=== PATIENT | male | born 1975 | race Caucasian/White ===

== ENCOUNTER 2021-08-19 15:15 | Outpatient (REF) | payer MEDICARE, MEDICAID, SELFPAY ==
[2021-08-19 15:53] LABS: MANUAL DIFF FLAG NO
[2021-08-19 15:54] LABS: Basophils Percent Auto 0.2 % (0-2); Eosinophils Percent Auto 0.1 % (0-4); Hematocrit 47.4 % (42.0-52.0); Hemoglobin 16.3 g/dl (14.0-18.0); Imm Gran Abs Auto 0.05 X10*3/uL (0.00-0.03); Imm Gran Pct Auto 0.3 % (0.0-0.4); Lymphocytes Absolute Auto 1.2 X10*3/uL (1.2-4.9); Lymphocytes Percent Auto 8.5 % (20-40); Mean Corpuscular HGB Conc 34.4 g/dl (31.0-36.0); Mean Corpuscular Volume 84.2 fL (80.0-98.0); Monocytes Absolute Auto 0.8 X10*3/uL (0.1-1.2); Monocytes Percent Auto 5.5 % (2-11); Neutrophils Absolute Auto 12.3 x10*3/uL (2.0-8.3); Neutrophils Percent Auto 85.4 % (45-73); Platelet Count 278 X10*3/uL (160-400); Red Blood Count 5.63 X10*6/uL (4.60-5.80); Red Cell Distribution Width 12.3 % (11.0-16.0); White Blood Count 14.5 X10*3/uL (4.8-10.8)
[2021-08-19 16:07] LABS: Estimated Average Glucose 220 mg/dL; Hemoglobin A1c % 9.3 %
[2021-08-19 16:15] LABS: Alanine Aminotransferase 17 U/L (0-40); Albumin Level 4.6 g/dL (3.5-5.0); Alkaline Phosphatase 84 U/L (39-117); Anion Gap 13 (12-20); Aspartate Amino Transferase 22 U/L (5-37); Bilirubin Total 0.7 mg/dL (0.0-1.0); Blood Urea Nitrogen 18 mg/dL (9-16); Calcium 10.5 mg/dL (8.4-10.2); Carbon Dioxide 29 mmol/L (22-29); Chloride 103 mmol/L (96-108); Cholesterol 181 mg/dL; Estimated Glomerular Filt Rate 59; Glucose Random 160 mg/dL (60-115); Potassium 4.6 mmol/L (3.3-5.1); Sodium 140 mmol/L (135-145); Total Protein 8.1 g/dL (6.5-8.0)
== END 2021-08-19 15:16 | disposition home or self-care (01) ==
LOC: HO.LAB 15:15
PROVIDERS: PCP Internal Medicine; Visit Provider Internal Medicine
DX: E11.9 Type 2 diabetes mellitus without complications (principal); I10 Essential (primary) hypertension; H54.8 Legal blindness, as defined in USA; Z79.4 Long term (current) use of insulin
CPT/HCPCS: 36415; 80053; 82465; 83036; 85025

== ENCOUNTER 2023-12-17 10:53 | Outpatient (REF) | payer MEDICARE, MEDICAID, SELFPAY ==
[2023-12-17 11:21] LABS: MANUAL DIFF FLAG NO
[2023-12-17 11:37] LABS: Basophils Percent Auto 0.4 % (0-2); Eosinophils Absolute Auto 0.1 X10*3/uL (0.0-0.4); Eosinophils Percent Auto 0.9 % (0-4); Hematocrit 43.1 % (42.0-52.0); Hemoglobin 15.2 g/dl (14.0-18.0); Imm Gran Abs Auto 0.02 X10*3/uL (0.00-0.03); Imm Gran Pct Auto 0.3 % (0.0-0.4); Lymphocytes Absolute Auto 1.5 X10*3/uL (1.2-4.9); Lymphocytes Percent Auto 20.2 % (20-40); Mean Corpuscular HGB Conc 35.3 g/dl (31.0-36.0); Mean Corpuscular Hemoglobin 29.2 pg (27.0-33.0); Mean Corpuscular Volume 82.7 fL (80.0-98.0); Mean Platelet Volume 9.1 fL (9.4-12.4); Monocytes Absolute Auto 0.6 X10*3/uL (0.1-1.2); Monocytes Percent Auto 8.3 % (2-11); Neutrophils Absolute Auto 5.3 x10*3/uL (2.0-8.3); Neutrophils Percent Auto 69.9 % (45-73); Platelet Count 227 X10*3/uL (160-400); Red Blood Count 5.21 X10*6/uL (4.60-5.80); Red Cell Distribution Width 11.9 % (11.0-16.0); White Blood Count 7.6 X10*3/uL (4.8-10.8)
[2023-12-17 12:47] LABS: Estimated Average Glucose 137 mg/dL; Hemoglobin A1c % 6.4 % (<6.0)
[2023-12-17 13:07] LABS: Alanine Aminotransferase 11 U/L (0-40); Alkaline Phosphatase 85 U/L (39-117); Anion Gap 8 (12-20); Aspartate Amino Transferase 16 U/L (5-37); Bilirubin Total 0.4 mg/dL (0.0-1.0); Blood Urea Nitrogen 15 mg/dL (9-16); Calcium 9.4 mg/dL (8.4-10.2); Carbon Dioxide 31 mmol/L (22-29); Chloride 105 mmol/L (96-108); Cholesterol 154 mg/dL (<200); Estimated Glomerular Filt Rate > 60; Glucose Fasting 151 mg/dL (60-99); HDL Cholesterol 35 mg/dL (>40); LDL Cholesterol Calculated 102 mg/dL (<100); Potassium 4.3 mmol/L (3.3-5.1); Sodium 140 mmol/L (135-145); Total Protein 7.3 g/dL (6.5-8.0); Triglycerides 85 mg/dL (<150)
[2023-12-17 13:12] LABS: Thyroid Stimulating Hormone 3.11 uIU/mL (0.32-4.0)
== END 2023-12-17 10:54 | disposition home or self-care (01) ==
LOC: HO.LAB 10:53
PROVIDERS: PCP Internal Medicine; Visit Provider Internal Medicine
DX: I10 Essential (primary) hypertension (principal); E11.40 Type 2 diabetes mellitus with diabetic neuropathy, unspecified; E11.51 Type 2 diabetes mellitus with diabetic peripheral angiopathy without gangrene; R63.5 Abnormal weight gain
CPT/HCPCS: 36415; 80053; 80061; 83036; 84443; 85025

== ENCOUNTER 2024-03-31 10:24 | Outpatient (REF) | payer MEDICARE, MEDICAID, SELFPAY ==
[2024-03-31 10:52] LABS: MANUAL DIFF FLAG NO
[2024-03-31 11:18] LABS: Basophils Absolute Auto 0.1 X10*3/uL (0.0-0.2); Basophils Percent Auto 0.7 % (0-2); Eosinophils Absolute Auto 0.2 X10*3/uL (0.0-0.4); Eosinophils Percent Auto 2.1 % (0-4); Hematocrit 42.6 % (42.0-52.0); Hemoglobin 14.9 g/dl (14.0-18.0); Imm Gran Abs Auto 0.02 X10*3/uL (0.00-0.03); Imm Gran Pct Auto 0.3 % (0.0-0.4); Lymphocytes Absolute Auto 1.7 X10*3/uL (1.2-4.9); Lymphocytes Percent Auto 23.5 % (20-40); Mean Corpuscular Hemoglobin 29.6 pg (27.0-33.0); Mean Corpuscular Volume 84.5 fL (80.0-98.0); Mean Platelet Volume 8.7 fL (9.4-12.4); Monocytes Absolute Auto 0.6 X10*3/uL (0.1-1.2); Monocytes Percent Auto 8.1 % (2-11); Neutrophils Absolute Auto 4.8 x10*3/uL (2.0-8.3); Neutrophils Percent Auto 65.3 % (45-73); Platelet Count 235 X10*3/uL (160-400); Red Blood Count 5.04 X10*6/uL (4.60-5.80); Red Cell Distribution Width 12.5 % (11.0-16.0); White Blood Count 7.3 X10*3/uL (4.8-10.8)
[2024-03-31 15:19] LABS: Estimated Average Glucose 143 mg/dL; Hemoglobin A1c % 6.6 % (<6.0)
[2024-03-31 21:11] LABS: Alanine Aminotransferase 11 U/L (0-40); Albumin Level 4.1 g/dL (3.5-5.0); Alkaline Phosphatase 80 U/L (39-117); Anion Gap 14 (12-20); Aspartate Amino Transferase 16 U/L (5-37); Bilirubin Total 0.5 mg/dL (0.0-1.0); Blood Urea Nitrogen 15 mg/dL (9-16); Calcium 9.7 mg/dL (8.4-10.2); Carbon Dioxide 27 mmol/L (22-29); Chloride 105 mmol/L (96-108); Estimated Glomerular Filt Rate > 60; Glucose Random 82 mg/dL (60-115); Potassium 4.7 mmol/L (3.3-5.1); Sodium 141 mmol/L (135-145); Total Protein 7.5 g/dL (6.5-8.0)
[2024-03-31 21:13] LABS: Thyroid Stimulating Hormone 4.59 uIU/mL (0.32-4.0)
== END 2024-03-31 10:25 | disposition home or self-care (01) ==
LOC: HO.LAB 10:24
PROVIDERS: PCP Internal Medicine; Visit Provider Internal Medicine
DX: E11.9 Type 2 diabetes mellitus without complications (principal); I10 Essential (primary) hypertension
CPT/HCPCS: 36415; 80053; 83036; 84443; 85025

== ENCOUNTER 2024-04-08 07:11 | Emergency (ER) | payer MEDICARE, MEDICAID, SELFPAY ==
[2024-04-08 07:17] VITALS: BP 141/73; BP 166/86; PULSE 110; PULSE 95; RESP 18; TEMP 36.4; O2SAT 95; BMI 35.0
[2024-04-08 07:21] VITALS: BP 166/86; PULSE 95; RESP 18; TEMP 36.4; O2SAT 95
--- NOTE | 2024-04-08 07:21 | ED_ITS ---
HPI - General Adult General Chief complaint: Altered Mental Status Stated complaint: BS 48 glucagon given Time Seen by Provider: 04/08/24 07:17 Source: patient, EMS and old records reviewed Mode of arrival: EMS Limitations: no limitations History of Present Illness ED Provider: JASMYNE CAMPUZANO narrative: 48 yo male with PMH of longstanding DM states he uses glucometer had regular range of BS yesterday ate pasta for dinner then took his lantus 54 units before bed. found him unresponsive in bed. EMS gave him glucagon BS was 48 upon ED arrival he was awake and alert. Denies any recent illness feels fine now states he wants to go home. Denies any event that could have caused this such as illness or overdose. He is eager to leave. MD complaint: hypoglycemia Onset (ago): unknown Radiation: non-radiation Severity: severe Relieving factors: none Exacerbating factors: other (glucagon) Associated symptoms: confusion Treatments prior to arrival: other (glucagon) Related Data Previous Rx's ?Medication ?Instructions ?Recorded glucagon HCl 1 mg solution for 1 mg subcut Q20M PRN hypoglycemia 04/08/24 injection (Glucagon (HCl) #1 ea Emergency Kit) Allergies Allergy/AdvReac Type Severity Reaction Status Date / Time Penicillins Allergy Hives Verified 04/08/24 07:21 Review of Systems 2 Review of Systems: Constitutional : No Fever, No Chills, No Fatigue ENT/Mouth : No sore throat, No Rhinorrhea Eyes: No Eye Pain, No Swelling, No Redness Cardiovascular : No Chest Pain, No SOB, No Dyspnea on Exertion Respiratory : No Cough, No Sputum Gastrointestinal : No Nausea, No Vomiting, No Diarrhea, No abdominal Pain Genitourinary : No Dysuria, No Urinary Frequency, No Hematuria, Musculoskeletal : No joint pain, No Myalgias, No Joint Swelling Skin : No Skin Lesions, No rash Neuro : No Weakness, No Numbness, No Dizziness, no Headache, pos confusion All other systems reviewed and are negative [facility] Past Medical History Medical History Diabetes Social History Social History (Updated 04/08/24 @ 07:24 by Rajwinder Loya DO) Patient Tobacco Use Status: Tobacco use Unknown Smoked in Last 30 Days: No Use of substances other than those prescribed or required for medical reasons: No Advance Directives: No Do you have a plan to hurt others: No Plan Physical Exam ED Vital Signs: Vital Signs - 24 hr 04/08/24 07:17 04/08/24 07:21 04/08/24 08:21 Temperature 97.5 F 97.5 F Pulse Rate 95 95 95 Respiratory Rate 18 18 16 Blood Pressure 166/86 H 166/86 H 141/86 H Pulse Oximetry 95 95 95 Oxygen Delivery Method Room Air Room Air Room Air BMI result Body Mass Index 35.0 Appearance: Alert. Oriented X3. No acute distress. Eyes: L pupils equal, round and reactive to light. R old opacified ENT: Pharynx normal. Neck: Normal inspection. Neck supple. CVS: Normal heart rate and rhythm. Pulses normal. Respiratory: No respiratory distress. Breath sounds normal. Abdomen: Soft and nontender. Skin: Skin warm and dry. Normal skin color. Normal skin turgor. Extremities: No lower extremity edema. No calf ttp Neuro: Oriented X 3. No motor deficit. No sensory deficit. Course Course Course Narrative: repeat blood sugar stable - can be DC Medical Decision Making Medical Decision Making [facility] Narrative: 48 yo male with PMH of longstanding IDDM here with c/o hypoglycemia and unresponsiveness at home without concern for insulin misuse or infection. At this time will obtain basic labs, monitor and recheck sugars. He does have hx of low blood sugars but not to this degree. He does not want to stay but agrees to some monitoring and blood work. Differential Diagnosis Differential Diagnoses: The differential diagnosis associated with the presentation includes hypoglycemia, kidney issue, denies infectious complaints Admission/Observation Consideration of admission/observation: Escalation of care including admission/observation considered monitor for 2 hours to make sure blood sugar is stable Lab Data [facility] Lab Attestation statement: I reviewed the patient's lab results. 04/08/24 07:33 04/08/24 07:33 Labs: Lab Results 04/08/24 04/08/24 Range/Units 07:15 07:33 WBC 5.8 (4.8-10.8) X10*3/uL RBC 4.95 (4.60-5.80) X10*6/uL Hgb 14.6 (14.0-18.0) g/dl Hct 40.8 L (42.0-52.0) % MCV 82.4 (80.0-98.0) fL MCH 29.5 (27.0-33.0) pg MCHC 35.8 (31.0-36.0) g/dl RDW 12.1 (11.0-16.0) % Plt Count 198 (160-400) X10*3/uL MPV 8.6 L (9.4-12.4) fL Immature Gran % (Auto) 0.2 (0.0-0.4) % Neut % (Auto) 70.0 (45-73) % Lymph % (Auto) 19.8 L (20-40) % [place] % (Auto) 7.9 (2-11) % Eos % (Auto) 1.6 (0-4) % Baso % (Auto) 0.5 (0-2) % Lymph # (Auto) 1.2 (1.2-4.9) X10*3/uL [place] # (Auto) 0.5 (0.1-1.2) X10*3/uL Eos # (Auto) 0.1 (0.0-0.4) X10*3/uL Baso # (Auto) 0.0 (0.0-0.2) X10*3/uL Abs Immat Gran (auto) 0.01 (0.00-0.03) X10*3/uL Absolute Neuts (auto) 4.1 (2.0-8.3) x10*3/uL Absolute Nucleated RBC 0.000 (0.0-0.012) X10*3/uL Nucleated RBC % (auto) 0.0 (0.0-0.2) /100WBC Sodium 140 (135-145) mmol/L Potassium 4.7 (3.3-5.1) mmol/L Chloride 106 (96-108) mmol/L Carbon Dioxide 24 (22-29) mmol/L Anion Gap 15 (12-20) BUN 13 (9-16) mg/dL Creatinine 0.95 (0.5-1.4) mg/dL Estim Creat Clear Calc 120.7 Estimated GFR > 60 POC Glucose 81 (60-115) mg/dL Random Glucose 137 H (60-115) mg/dL Calcium 9.4 (8.4-10.2) mg/dL Independent Historian Clinical information obtained from an independent historian. History obtained from or confirmed by: EMS External Record Review External record reviewed: Outpatient record Discharge Plan Discharge Clinical Impression: Hypoglycemia Instructions: Hypoglycemia in a Person with Diabetes (ED) Additional Instructions: stay with responsible adult and monitor blood sugars frequently. return for any worsening symptoms or concerns. Prescriptions: New glucagon HCl [Glucagon (HCl) Emergency Kit] 1 mg recon soln 1 mg subcut Q20M PRN (Reason: hypoglycemia) Qty: 1 0RF Rx Instructions: until target blood sugar attained Print Language: Azerbaijani
[2024-04-08 07:36] LABS: Glucose, Whole Blood 81 mg/dL (60-115)
[2024-04-08 07:37] LABS: Basophils Percent Auto 0.5 % (0-2); Eosinophils Absolute Auto 0.1 X10*3/uL (0.0-0.4); Eosinophils Percent Auto 1.6 % (0-4); Hematocrit 40.8 % (42.0-52.0); Hemoglobin 14.6 g/dl (14.0-18.0); Imm Gran Abs Auto 0.01 X10*3/uL (0.00-0.03); Imm Gran Pct Auto 0.2 % (0.0-0.4); Lymphocytes Absolute Auto 1.2 X10*3/uL (1.2-4.9); Lymphocytes Percent Auto 19.8 % (20-40); MANUAL DIFF FLAG NO; Mean Corpuscular HGB Conc 35.8 g/dl (31.0-36.0); Mean Corpuscular Hemoglobin 29.5 pg (27.0-33.0); Mean Corpuscular Volume 82.4 fL (80.0-98.0); Mean Platelet Volume 8.6 fL (9.4-12.4); Monocytes Absolute Auto 0.5 X10*3/uL (0.1-1.2); Monocytes Percent Auto 7.9 % (2-11); Neutrophils Absolute Auto 4.1 x10*3/uL (2.0-8.3); Platelet Count 198 X10*3/uL (160-400); Red Blood Count 4.95 X10*6/uL (4.60-5.80); Red Cell Distribution Width 12.1 % (11.0-16.0); White Blood Count 5.8 X10*3/uL (4.8-10.8)
[2024-04-08 07:57] LABS: Anion Gap 15 (12-20); Blood Urea Nitrogen 13 mg/dL (9-16); Calcium 9.4 mg/dL (8.4-10.2); Carbon Dioxide 24 mmol/L (22-29); Chloride 106 mmol/L (96-108); Creatinine Clr Calc Pharmacy 120.7; Estimated Glomerular Filt Rate > 60; Glucose Random 137 mg/dL (60-115); Potassium 4.7 mmol/L (3.3-5.1); Sodium 140 mmol/L (135-145)
[2024-04-08 08:21] VITALS: BP 141/86; PULSE 95; RESP 16; O2SAT 95
--- NOTE | 2024-04-08 08:23 | PC.NURSE ---
Pt arrives by EMS for reports of finding Pt to be disoriented this morning. BS 48 for EMS, 1mg glucagon given. EMS reports Pt was slightly uncooperative initially but then followed commands and participated in care. No IV access and Pt refuses unless absolutely necessary. Blood labs in and are unremarkable; awaiting disposition.
--- NOTE | 2024-04-08 08:45 | PC.NURSE ---
Breakfast tray provided
[2024-04-08 09:14] LABS: Glucose, Whole Blood 242 mg/dL (60-115)
[2024-04-08 09:25] VITALS: BP 163/81; PULSE 95; RESP 16; TEMP 36.9; O2SAT 95
== END 2024-04-08 09:26 | disposition home or self-care (01) ==
PROVIDERS: Emergency Provider Emergency Medicine; PCP Internal Medicine
DX: E11.649 Type 2 diabetes mellitus with hypoglycemia without coma (principal); Z79.4 Long term (current) use of insulin
CPT/HCPCS: 36415; 80048; 82947; 85025; 99283; 99284

== ENCOUNTER 2024-10-03 10:09 | Outpatient (AMB) | payer MEDICARE, MEDICAID, SELFPAY ==
--- NOTE | 2024-10-03 10:11 | MHC.OFFVIS ---
Vital Signs 10/03/24 10:24 Height 5 ft 10 in Weight 232 lb BMI 33.3 BP 170/80 H Blood Pressure Location Rt brachial Position Sitting Pulse 104 H Intake Visit Reasons: Umbilical hernia Intake Note: Patient referred by pcp Dr. Barrera for umbilical hernia. Present for 1M. Patient c/o: denies pain. Hat Brim And Crown Laminating Operator Required: No Accompanied by: Greta Allergies Penicillins Allergy (Verified 10/03/24 10:17) Hives HPI Comments Details: Patient presents with a significant other. He has what he claims to be a roughly 4 week history of an umbilical hernia which is significantly increasing in size and becoming more symptomatic. He would like to have it repaired. He has never had such problems before. He otherwise tolerating a diet. He has regular bowel habits. He is not do very strenuous activities. Chart was reviewed and patient evaluated [facility] Medical History (Updated 10/03/24 @ 10:23 by THOR Lobo) Legally blind Diabetes Surgical History (Updated 10/03/24 @ 10:46 by Sergio Nance MD) Status post surgical removal of nail matrix of toe of right foot Social History (Updated 10/03/24 @ 10:23 by THOR Lobo) Patient Tobacco Use Status: Never used Tobacco Physical Exam Vital Signs: Last Vital Signs Pulse 104 H 10/03/24 10:24 BP 170/80 H 10/03/24 10:24 BMI result Body Mass Index 33.3 Eyes Other: Right eye issue Chest Other: Chest breath sounds bilaterally, HS 1 in 2 GI Other: Patient was examined both supine and standing with Valsalva. Bilateral groin exam negative. Genitalia within normal limits. Patient was a massive reducible inguinal hernia. The hernia sac was quite large in the hernia defect measures roughly 5 cm. Abdomen otherwise benign Assessment & Plan Assessment & Plan (1) Umbilical hernia: Code(s): K42.9 - Umbilical hernia without obstruction or gangrene Category: Surgical Plan Risks, benefits, alternatives of open umbilical hernia repair with mesh were reviewed with the patient and included but not limited to bleeding, infection, recurrence, numbness, pain, scarring, bowel injury and the patient wished to proceed. All questions answered. Arrangements were made for this on a day which is convenient for him. Coding Level of Care Code New Pt Level 5 (44780) Diagnoses Umbilical hernia K42.9
[2024-10-03 10:24] VITALS: BP 170/80; PULSE 104; BMI 33.3
--- OUTSIDE RECORDS SUMMARY | 2024-10-03 11:23 | XMS_ITS | Clinical Summary ---
Author Organization [employer] Address [address] [place] [address] [address] [place] [address] Care Team Providers Care Project Development Manager Name Role Phone Unavailable Primary Care Provider Unavailabl e Social History Tobacco Use Types Packs/Day Years Used Date Smoking Tobacco: Never Assessed Sex and Gender Information Value Date Recorded Sex Assigned at Male 07/13/2022 10:36 AM EDT Legal Sex Male 10:36 AM EDT Gender Identity Not on file Sexual Orientation Not on file Plan of Treatment Health Maintenance Due Date Last Done Comments CT Colonography 1974 Colonoscopy 1974 Colorectal Cancer Screening 1974 Depression Screening 1974 FIT DNA/Cologuard 1974 FIT 1974 FOBT 1974 HIV Screening 1974 Lipid Panel 1974 SDOH Screening 1974 Sigmoidoscopy 1974 Alcohol/Substance Use Screening 1986 Tobacco Screening 1986 Hepatitis C Screening 1992 DTaP/Tdap/Td Vaccines (1 - Tdap) 1993 Hepatitis B Vaccines (1 of 3 - 19+ 3-dose series) 1993 COVID-19 Vaccine ( - 2023-2 5 season) 2024 Influenza Vaccine (#1) 2024 Zoster Vaccines (1 of 2) 2024 RSV Patients and Pa tients Aged 60 years or older (1 - 1-dose 75+ series) 2049 HIB Vaccines Aged Out No longer eligi ble based on patient's age to complete this topic HPV Vaccines Aged Out No longer eligi ble based on patient's age to complete this topic Hepatitis A Vaccines Aged Out No long er eligible based on patient's age to complete this topic IPV Vaccines Aged Out No longer eligi ble based on patient's age to complete this topic Meningococcal Vaccine Aged Out No darío peter eligible based on patient's age to complete this topic Pneumococcal Vaccine: Pediat rics (0 to 5 Years) and At-Risk Patients (6 to 64 Years) Aged Out No longer eligible b ased on patient's age to complete this topic RSV under 20 months Aged Out No longe r eligible based on patient's age to complete this topic Rotavirus Vaccines Aged Out No longer eligible based on patient's age to complete this topic Insurance [facility] STANDARD
== END 2024-10-03 10:25 | disposition home or self-care (01) ==
PROVIDERS: PCP Internal Medicine; Referring Provider Internal Medicine; Visit Provider Surgery
DX: K42.9 Umbilical hernia without obstruction or gangrene (principal)
CPT/HCPCS: 99204

== ENCOUNTER → 2024-10-03 10:09 | Outpatient (BNVA) | payer MEDICARE, MEDICAID, SELFPAY | PROVIDERS: PCP Internal Medicine; Referring Provider Internal Medicine; Visit Provider Surgery | DX: K42.9 Umbilical hernia without obstruction or gangrene (principal) | CPT/HCPCS: 99202 ==

== ENCOUNTER 2024-11-03 07:03 | Day surgery (SDC) | payer MEDICARE, MEDICAID, SELFPAY ==
[2024-11-01 07:28] VITALS: BMI 34.9
--- NOTE | 2024-11-02 12:26 | P.HPSUR_ITS ---
Pre-Procedural Eval Section A - 24 Hr Update-Section A only Date of Service: 11/03/24 The patient is an INPATIENT: No Changes since office visit: No Cold of Flu in the past 2 weeks, No New Medical Problems, No Changes in Medication and No Patient answered all questions Section B - Complete if H&P > 30 days Chief Complaint: Umbilical hernia without obstruction or gangrene Allergies: Allergies Allergy/AdvReac Type Severity Reaction Status Date / Time cephalexin Allergy Unknown Verified 11/01/24 07:13 Penicillins Allergy Hives Verified 10/03/24 10:17 Review of Systems Sugical H&P ROS: Negative: Constitution, Cardiovascular, Respiratory, Neurological, Psychiatric, Hem-Onc, Allergic/Immunologic, Gastrointestinal, Genitourinary, Musculoskeletal, Integumentary, Endocrine and Eyes/Ears/Nose/Throat Exam Surgical H&P Exam: Normal: HEENT, Normal: Heart, Normal: Lungs, Normal: Ex tremities, Normal: Abdomen, Normal: Skin and Normal: Neurological Plan I have reviewed the history and physical and performed a pertinent physical examination on my patient. No changes have occurred unless specified. Time Spent With Patient Time: Total time managing care of this patient today ____ minutes.
--- OUTSIDE RECORDS SUMMARY | 2024-11-02 13:16 | XMS_ITS | Clinical Summary ---
Author Organization [employer] Address [address] [place] [address] [address] [place] [address] Care Team Providers Care Talent Development Director Name Role Phone Unavailable Primary Care Provider [...] Alcohol/Substance Use Screening 1986 Tobacco Screening 1986 Family Planning (PISQ) 1989 Hepatitis C Screening 1992 DTaP/Tdap/Td Vaccines (1 - Tdap) 1993 Hepatitis B Vaccines (1 of 3 - 19+ 3-dose series) 1993 COVID-19 Vaccine ( - 2023-2 5 season) 2024 Influenza Vaccine (#1) 2024 Pneumococcal Vaccine: 50+ Ye ars (1 of 1 - PCV) 2024 Zoster Vaccines (1 of 2) 2024 [...] 5 Years) and At-Risk Patients (6 to 49) Years) Aged Out No longer eligible b ased on patient's age to complete this topic RSV under 20 months Aged Out No longe r eligible based on patient's age to complete this topic Rotavirus Vaccines Aged Out No longer eligible based on patient's age to complete this topic Insurance [facility] STANDARD
[2024-11-03] VITALS (8 sets, daily range): BP systolic 137–179; BP diastolic 76–92; PULSE 99–112; RESP 16–20; TEMP 37.2–37.6; O2SAT 93–96; BMI 35.4
[2024-11-03 08:10] LABS: Glucose, Whole Blood 222 mg/dL (60-115)
--- NOTE | 2024-11-03 08:11 | PC.NURSE ---
we went over patients medical history and denies alot of his medical history. the patient and his father have the same name and doctor. so we updated his medical history. denies afib..
--- NOTE | 2024-11-03 09:01 | HO.ANESPROP2 ---
HPI - Anesthesia Eval Consult details Narrative: umb hernia PMFSH Active Problems Active Problems: All Active Problems Umbilical hernia (Acute) Past Medical History Medical History Anxiety Obesity Overweight Hallux valgus (acquired), right foot Hallux valgus (acquired), left foot Localized edema Legally blind Diabetes Family History Family history of problems with anesthesia: No Surgical History Surgical History History of eye surgery Status post surgical removal of nail matrix of toe of right foot History of Problems with Anesthesia: No Social History Social History Patient Tobacco Use Status: Never used Tobacco Use of substances other than those prescribed or required for medical reasons: No Are you DNR?: No Advance Directives: No Advance Directives Information Provided: Yes Advance Directives on File: No Recently lost weight without trying: No Nutrition Risks: No Nutritional Risk Poor oral hygiene: No Meds Allergies Allergy/AdvReac Type Severity Reaction Status Date / Time cephalexin Allergy Unknown Verified 11/01/24 07:13 Penicillins Allergy Anaphylaxis Verified 11/03/24 07:37 Active Medications: Current Medications Lactated Ringer's (Lr) 1,000 mls @ 80 mls/hr IVCONT .[id number] ROMAN Home Medications ?Medication ?Instructions ?Recorded ?Confirmed ?Last Taken ?Type insulin aspart 4 - 14 unit subcut DIRECTED 10/03/24 10/03/24 Unknown History (niacinamide)(U-100) 100 unit/mL(3 mL) subcutaneous pen (Fiasp FlexTouch U-100 Insulin) insulin aspart U-100 100 unit/mL subcut DIRECTED 10/03/24 10/03/24 Unknown History (3 mL) subcutaneous pen (Novolog FlexPen U-100 Insulin aspart) insulin glargine 100 unit/mL (3 60 unit subcut DAILY 10/03/24 10/03/24 Unknown History mL) subcutaneous pen (Basaglar KwikPen U-100 Insulin) doxazosin 2 mg tablet 2 mg PO BEDTIME 11/01/24 11/01/24 Unknown History lisinopril 20 mg tablet 20 mg PO DAILY 11/01/24 Unknown History Exam Height,Weight and Vital Signs: Height 5 ft 11 in Weight 115.3 kg Last Vital Signs Temp 98.9 F 11/03/24 08:01 Pulse 99 11/03/24 08:26 Resp 16 11/03/24 08:01 BP 169/90 H 11/03/24 08:27 Pulse Ox 94 11/03/24 08:01 O2 Del Method Room Air 11/03/24 08:01 Pertinent Lab Results Pertinent Lab Results: Laboratory Tests 11/03/24 08:06 POC Glucose 222 H Airway Mallampati Class: III TM Dist: >3cm Neck ROM: Poor Denture: Upper (poor) and Lower (poor) Assessment and Plan Assessment Anesthesia Assessment: Anesthesia Plan Discussed and Chart Reviewed Final Anesthetic Review Family History of Problems with Anesthesia: No History of Problems with Anesthesia: No NPO: Yes ASA Class: III Final Preanesthetic Review: No Changes in Pt Med Stat, Meds/Allgs Chart Reviewed, Consent Obtained/Reviewed and Anes Risks/Benef Reviewed Patient Risk: Intermediate Procedure Risk: Intermediate Anesthetic Plan Anesthetic Plan: GA Disposition: Standard PACU
--- NOTE | 2024-11-03 10:16 | P.OP_ITS ---
Operative Note Operative Note Date of Service: 11/03/24 Narrative: Preoperative diagnosis: [] Large symptomatic incarcerated umbilical hernia Postop diagnosis: [] The same Procedure [] open umbilical herniorrhaphy with Bard mesh Surgeon: [] Goyo Supervisor Agricultural Education: [] Stefano Type of Anesthesia: [] General Indication for surgery: [] Very large umbilical hernia with omental contents. Defect measured approximately 8 cm diameter. Corpulent abdomen. Findings: [] Patient brought to the operating room, placed on operative table supine position, after an adequate level of general anesthesia was induced, the patient's abdomen is prepped and draped in usual sterile fashion using an infraumbilical curvilinear incision, this carried down through skin, subcutaneous tissue, with the very large hernia sac was dissected off the posterior aspect of the umbilicus and then dissected down to the fascia. Sac was opened and omental contents partially amputated partially returned to the abdominal cavity using Bovie and 3-0 ties of Vicryl. An amputation of the sac was performed and then fascia margins were circumferentially cleared. Defect size as noted above. Inappropriately sized Bard mesh was placed in this defect and circumferentially sutured to the surrounding fascia using combination of U stitches and simple sutures of 0 Ethibond. At completion of the procedure, mesh was in good position with no gaps or tension. Wound was irrigated, secured hemostasis, and closed in the following manner; posterior aspect of the protuberant umbilicus was tacked to the wound floor using interrupted 3-0 Vicryl sutures. Subcutaneous tissue was reapproximated using interrupted 3-0 Vicryl sutures. Skin was closed using interrupted inverted dermal 3-0 Vicryl sutures followed by Steri-Strips and sterile dressings. Wound was infiltrated the beginning at the end with 0.5% Marcaine/1% lidocaine. Sponge, needle, and instrument counts were reported correct. Patient tolerated the procedure well and emerged from anesthesia stable condition. EBL minimal
[2024-11-03 10:24] LABS: Glucose, Whole Blood 233 mg/dL (60-115)
== END 2024-11-03 11:17 | disposition home or self-care (01) ==
PROVIDERS: PCP Internal Medicine; Visit Provider Surgery
PROC: (CPT 49594; principal; 2024-11-03 09:00)
DX: K42.0 Umbilical hernia with obstruction, without gangrene (principal); E65 Localized adiposity; E11.9 Type 2 diabetes mellitus without complications; H54.8 Legal blindness, as defined in USA; Z98.890 Other specified postprocedural states; E66.9 Obesity, unspecified; Z68.33 Body mass index [BMI] 33.0-33.9, adult; Z79.4 Long term (current) use of insulin; Z79.899 Other long term (current) drug therapy; Z88.0 Allergy status to penicillin
CPT/HCPCS: 49594; 82947; 88302; 88304; C1781; J0131; J0736; J2003; J2371; J2405; J2704; J2795; J3010

== ENCOUNTER → 2024-11-03 07:03 | Outpatient (BNV) | payer MEDICARE, MEDICAID, SELFPAY | PROVIDERS: PCP Internal Medicine; Visit Provider Surgery | DX: K42.0 Umbilical hernia with obstruction, without gangrene (principal) | CPT/HCPCS: 49616 ==

== ENCOUNTER 2024-11-13 10:49 | Outpatient (AMB) | payer MEDICARE, MEDICAID, SELFPAY ==
--- NOTE | 2024-11-13 10:50 | MHC.OFFVIS ---
Intake Visit Reasons: S/P umbilical hernia w/mesh Intake Note: Patient here s/p open umbilical herniorrhaphy with Bard mesh. Reports incision healing well. Patient c/o: no concerns. Steri strips in placed. No longer taking rx pain meds. Surgery: 11-03-2024 Sas Developer Analyst Required: No Accompanied by: Self / Same As Patient Allergies cephalexin Allergy (Verified 11/13/24 10:50) Unknown Penicillins Allergy (Verified 11/13/24 10:50) Anaphylaxis Medication List - Last Reconciled 11/13/24 by Sergio Nance MD doxazosin 2 mg PO BEDTIME insulin aspart (niacinamide) 100 unit/mL (3 mL) (Fiasp FlexTouch U-100 Insulin) 4 - 14 units subcut DIRECTED insulin aspart U-100 (Novolog FlexPen U-100 Insulin aspart) subcut DIRECTED insulin glargine (Basaglar KwikPen U-100 Insulin) 60 units subcut DAILY lisinopril 20 mg PO DAILY HPI Comments Details: Patient was with significant other status post large ventral hernia repair. All things considered he is doing well. Tolerating a diet. Having regular bowel habits. He is increasing his activity level. He has minimal incisional discomfort. [facility] Medical History Anxiety Obesity Overweight Hallux valgus (acquired), right foot Hallux valgus (acquired), left foot Localized edema Legally blind Diabetes Surgical History (Updated 11/13/24 @ 11:20 by Sergio Nance MD) Umbilical hernia (11/03/24) History of eye surgery Status post surgical removal of nail matrix of toe of right foot Social History Patient Tobacco Use Status: Never used Tobacco Physical Exam GI Other: Abdomen is soft. Incision clean dry and intact healing well. Some surrounding resolving ecchymosis Assessment & Plan Assessment & Plan (1) Status post repair of ventral hernia: Code(s): Z98.890 - Other specified postprocedural states; Z87.19 - Personal history of other diseases of the digestive system Category: Medical Plan Patient was continue local instructions including wearing his abdominal binder and will otherwise follow-up p.r.n.. He should avoid strenuous activities for next few weeks time. All questions answered. Patient will otherwise follow-up p.r.n.. Medications: New ibuprofen 800 mg PO Q8H PRN 30 tabs 0RF pain Coding Level of Care Code Global (69935) Diagnoses Status post repair of ventral hernia Z98.890; Z87.19
--- OUTSIDE RECORDS SUMMARY | 2024-11-13 12:44 | XMS_ITS | Clinical Summary ---
Author Organization [employer] Address [address] [place] [address] [address] [place] [address] Care Team Providers Care Spanish Medical Interpreter Name Role Phone Unavailable Primary Care Provider [...] patient's age to complete this topic Insurance [facility] STANDARD
== END 2024-11-13 11:16 | disposition home or self-care (01) ==
PROVIDERS: PCP Internal Medicine; Visit Provider Surgery
DX: Z98.890 Other specified postprocedural states (principal); Z87.19 Personal history of other diseases of the digestive system
CPT/HCPCS: 99212

== ENCOUNTER → 2024-11-13 10:49 | Outpatient (BNVA) | payer MEDICARE, MEDICAID, SELFPAY | PROVIDERS: PCP Internal Medicine; Visit Provider Surgery | DX: Z87.19 Personal history of other diseases of the digestive system (principal); Z98.890 Other specified postprocedural states | CPT/HCPCS: 99212 ==

== ENCOUNTER → 2024-11-30 12:40 | Outpatient (BNVA) | payer MEDICARE, MEDICAID, SELFPAY | PROVIDERS: PCP Internal Medicine; Visit Provider Surgery | DX: Z03.89 Encounter for observation for other suspected diseases and conditions ruled out (principal); Z48.01 Encounter for change or removal of surgical wound dressing | CPT/HCPCS: 99211 ==

== ENCOUNTER → 2024-12-12 13:27 | Outpatient (BNVA) | payer MEDICARE, MEDICAID, SELFPAY | PROVIDERS: PCP Internal Medicine; Visit Provider Surgery | DX: Z48.00 Encounter for change or removal of nonsurgical wound dressing (principal) | CPT/HCPCS: 99211 ==

== ENCOUNTER 2025-02-25 10:04 | Emergency (ER) | payer MEDICARE, MEDICAID, SELFPAY ==
--- NOTE | ~2025-02-25 | XR_ITS ---
CLINICAL HISTORY: AMS 1 view chest x-ray Comparison: None Findings: The lungs are clear. Heart size is normal. No acute fracture. IMPRESSION: 1. No acute findings. This document has been electronically signed by: Amada Dewitt MD on 02/25/2025 12:28:37
--- NOTE | 2025-02-25 10:06 | ED.GENADULT ---
HPI - General Adult General Chief complaint: Altered Mental Status Stated complaint: STS BS 77/NORMAL ,ALTERED/COMBATIVE PER EMS Time Seen by Provider: 02/25/25 10:05 Source: patient, family, EMS and old records reviewed Mode of arrival: EMS Limitations: no limitations History of Present Illness ED Provider: Amrita Rios PA-C HPI narrative: This is a 49-year-old male, with a past medical history of diabetes, who presents emergency department via EMS with concerns of combativeness and altered mental status. Per EMS, patient was acting his normal self however this morning he was combative, and seemed altered. There glucometer is red that his sugars were in the 70s. On arrival, patient's blood sugar is 48. Patient is yelling, stating that he does not want to be here he is alert and oriented to self and place. He reports he is in no current pain. He states that he feels slightly confused. MD complaint: Altered mental status, agitation, hypoglycemia Relieving factors: none Exacerbating factors: none Associated symptoms: denies other symptoms Treatments prior to arrival: none Related Data Home Medications ?Medication ?Instructions ?Recorded ?Confirmed insulin glargine 100 unit/mL (3 60 unit subcut DAILY 10/03/24 11/13/24 mL) subcutaneous pen (Basaglar KwikPen U-100 Insulin) doxazosin 2 mg tablet 2 mg PO BEDTIME 11/01/24 11/13/24 lisinopril 20 mg tablet 20 mg PO DAILY 11/01/24 11/13/24 insulin NPH isoph U-100 human 100 60 unit subcut DAILY 12/27/24 unit/mL subcutaneous suspension (Novolin N NPH U-100 Insulin isophane) Previous Rx's ?Medication ?Instructions ?Recorded ibuprofen 800 mg tablet 800 mg PO Q8H PRN pain #30 tabs 11/13/24 Allergies Allergy/AdvReac Type Severity Reaction Status Date / Time cephalexin Allergy Unknown Verified 02/25/25 10:32 Penicillins Allergy Anaphylaxis Verified 02/25/25 10:32 Review of Systems Review of Systems: Yes all other systems are reviewed and are negative Constitutional: Constitutional: Reports as per HPI [facility] Past Medical History Medical History (Updated 02/25/25 @ 13:05 by ALFIE Callejas) Anxiety Obesity Overweight Hallux valgus (acquired), right foot Hallux valgus (acquired), left foot Localized edema Legally blind Diabetes Surgical History (Updated 11/13/24 @ 11:20 by Sergio Nance MD) Umbilical hernia (11/03/24) History of eye surgery Status post surgical removal of nail matrix of toe of right foot Social History Social History Patient Tobacco Use Status: Never used Tobacco Smoked in Last 30 Days: No Use of substances other than those prescribed or required for medical reasons: No Advance Directives: No Advance Directives Information Provided: Yes Do you have a plan to hurt others: No Plan Physical Exam ED Vital Signs: Vital Signs - 24 hr 02/25/25 10:29 02/25/25 12:00 Temperature 98.2 F Pulse Rate 101 H 91 Respiratory Rate 20 18 Blood Pressure 179/81 H 156/77 H Pulse Oximetry 96 95 Oxygen Delivery Method Room Air Room Air BMI result Body Mass Index 36.0 Const General: cooperative, comfortable and no acute distress Orientation/consciousness: patient oriented x3 Limitations: no limitations HENMT Head: Yes normal to inspection, Yes normocephalic and Yes atraumatic Ears: hearing grossly normal bilaterally General nose exam: Normal external nose present Face and sinus: Yes normal facial exam Mouth: Normal oral and palatal mucosa present, oropharynx normal and moist mucous membranes Throat: Yes posterior oropharynx normal Eyes General: appearance normal, both eyes and all related structures Eyelids: Yes eyelids normal Conjunctivae: conjunctivae normal Sclerae: sclerae normal Pupils: Equal, round and reactive pupils present EOM: EOMs intact bilaterally Neck Neck: Yes normal visual inspection, Yes full ROM and Yes no lymphadenopathy Lymphatic: no lymphadenopathy noted Chest Chest palpation & inspection: normal inspection of the chest Resp Effort & Inspection: normal respiratory effort and able to speak in complete sentences Auscultation: clear to auscultation bilaterally, no crackles, no rales, no rhonchi and no wheezes Cardio Rate: regular rate Rhythm: regular rhythm Heart sounds: S1 normal heart sound present and S2 normal heart sound present GI Inspection: Yes normal to inspection Skin General skin exam: no rashes or lesions noted Trauma: no lacerations or abrasions Wounds: no wounds Neuro General: patient oriented x3 and moves all extremities Cranial nerves: Yes Equal, round and reactive pupils present Extrem General: Yes normal to inspection Right upper extremity: normal to inspection Left upper extremity: normal to inspection Right lower extremity: normal to inspection Left lower extremity: normal to inspection Medications Administered Discontinued Medications Generic Name Dose Route Start Last Admin Trade Name Ap PRN Reason Stop Dose Admin Dextrose 25 gm 02/25/25 10:24 02/25/25 10:36 Dextrose 50 % 25 Gm/50 Ml Syringe IVPUSH 02/25/25 10:25 25 gm ONCE ONE Administration Medical Decision Making Medical Decision Making [facility] Narrative: This is a 49-year-old male, with a history of diabetes on insulin, who presents emergency department from home via EMS with concerns of altered mental status and combativeness. On arrival, patient is alert and oriented to self and place. He states that he is unsure why he is here, in his frustrated. No neurologic deficits on examination, point of care at bedside revealing hypoglycemic at 49. Of note, patient in his similar presentation last year. He has no current complaints. D50 ordered, will also give IV fluids. Labs, EKG, and, chest x-ray also ordered however continue to closely monitor pending overall workup today. 1040 - several minutes after receiving IV dextrose, patient appears to be at his baseline. He is cheerful, alert and oriented x4. He is neurologically intact. Head is normocephalic atraumatic, CT head was canceled. Changes in mentation likely secondary to episode of hypoglycemia. He is back to his baseline. He has no recollection of what had happened earlier today. He states that this happens when he becomes hypoglycemic. He states he has not been recently ill with any illness. He denies any current pain. Patient reports that he believes his sugars though as his provider needs to adjust his insulin regimen. Will obtain labs, chest x-ray, urinalysis to ensure no infectious causes of hypoglycemia. 1257 - labs returned, no leukocytosis, H&H stable, chemistry revealing no significant electrolyte derangement. Glucose improved to 190. Repeat point of care 1 hour after receiving IV glucose revealed glucose of 176. Beta hydroxybutyrate is 0.32, VBG reveals that he is not acidoic. 1305 - patient is refusing to provide a urine sample. He states that he is feeling well, in his very anxious to leave. He states that he knows his sugar as low as his long-acting insulin may need to be adjusted through his primary care office. Repeat point of care is 171. I discussed strict return precautions. He is aware that he may have a urinary tract infection that we are unable to diagnosed without a urine sample therefore he could be at risk for putting himself in a further problems with hypoglycemia. He is aware of these risks and consequences and still would like to leave. I urged the importance of following up with his primary care physician ASTRID as he may need to have his insulin regimen adjusted. I stressed the importance of taking his blood glucose level multiple times and keeping a close eye on this over the next several days until his insulin regimen is monitor. He understands and agrees with plan. Patient stable for discharge. Differential Diagnosis Differential Diagnoses: The differential diagnosis associated with the presentation includes Hypoglycemia, electrolyte derangement, PAUL Admission/Observation Consideration of admission/observation: Escalation of care including admission/observation considered Lab Data [facility] Lab Attestation statement: I reviewed the patient's lab results. See MDM and course 02/25/25 10:50 02/25/25 10:50 Labs: Lab Results 02/25/25 02/25/25 02/25/25 Range/Units 10:18 10:50 11:00 WBC 6.4 (4.8-10.8) X10*3/uL RBC 5.32 (4.60-5.80) X10*6/uL Hgb 15.4 (14.0-18.0) g/dl Hct 43.1 (42.0-52.0) % MCV 81.0 (80.0-98.0) fL MCH 28.9 (27.0-33.0) pg MCHC 35.7 (31.0-36.0) g/dl RDW 12.6 (11.0-16.0) % Plt Count 222 (160-400) X10*3/uL MPV 8.7 L (9.4-12.4) fL Immature Gran % (Auto) 0.3 (0.0-0.4) % Neut % (Auto) 80.1 H (45-73) % Lymph % (Auto) 13.4 L (20-40) % Davie % (Auto) 5.6 (2-11) % Eos % (Auto) 0.3 (0-4) % Baso % (Auto) 0.3 (0-2) % Lymph # (Auto) 0.9 L (1.2-4.9) X10*3/uL Davie # (Auto) 0.4 (0.1-1.2) X10*3/uL Eos # (Auto) 0.0 (0.0-0.4) X10*3/uL Baso # (Auto) 0.0 (0.0-0.2) X10*3/uL Abs Immat Gran (auto) 0.02 (0.00-0.03) X10*3/uL Absolute Neuts (auto) 5.1 (2.0-8.3) x10*3/uL Absolute Nucleated RBC 0.000 (0.0-0.012) X10*3/uL Nucleated RBC % (auto) 0.0 (0.0-0.2) /100WBC VBG pH 7.42 (7.32-7.43) VBG pCO2 39 mmHg VBG pO2 60 mmHg VBG HCO3 25 (22-26) mmol/L VBG O2 Saturation 89.0 % VBG Base Excess 1.2 mmol/L Sodium 139 (135-145) mmol/L Potassium 3.9 (3.3-5.1) mmol/L Chloride 106 (96-108) mmol/L Carbon Dioxide 22 (22-29) mmol/L Anion Gap 15 (12-20) BUN 11 (9-16) mg/dL Creatinine 0.99 (0.5-1.4) mg/dL Estim Creat Clear Calc 116.1 Estimated GFR > 60 POC Glucose 49 L* (60-115) mg/dL Random Glucose 190 H (60-115) mg/dL Lactic Acid 1.1 (0.5-2.0) mmol/L Calcium 9.3 (8.4-10.2) mg/dL Magnesium 2.1 (1.6-2.6) mg/dL Total Bilirubin 0.7 (0.0-1.0) mg/dL Direct Bilirubin 0.2 (0.0-0.5) mg/dL AST 33 (5-37) U/L ALT 21 (0-40) U/L Alkaline Phosphatase 75 (39-117) U/L Ammonia 39 (13-55) umol/L Troponin I High Sens < 2.7 (<3.5-35.0) ng/L B-Natriuretic Peptide < 10 (<100) pg/mL Total Protein 7.4 (6.5-8.0) g/dL Albumin 4.2 (3.5-5.0) g/dL Lipase 6 L (8-78) U/L Beta-Hydroxybutyrate 0.32 H (0.02-0.27) mmol/L Ethyl Alcohol < 10 mg/dL Influenza Type A (PCR) NEGATIVE (Negative) Influenza Type B (PCR) NEGATIVE (Negative) RSV RNA Qual (PCR) NEGATIVE (Negative) SARS-CoV-2 RNA (RT-PCR) NEGATIVE (Negative) 02/25/25 Range/Units 11:58 WBC (4.8-10.8) X10*3/uL RBC (4.60-5.80) X10*6/uL Hgb (14.0-18.0) g/dl Hct (42.0-52.0) % MCV (80.0-98.0) fL MCH (27.0-33.0) pg MCHC (31.0-36.0) g/dl RDW (11.0-16.0) % Plt Count (160-400) X10*3/uL MPV (9.4-12.4) fL Immature Gran % (Auto) (0.0-0.4) % Neut % (Auto) (45-73) % Lymph % (Auto) (20-40) % Davie % (Auto) (2-11) % Eos % (Auto) (0-4) % Baso % (Auto) (0-2) % Lymph # (Auto) (1.2-4.9) X10*3/uL Davie # (Auto) (0.1-1.2) X10*3/uL Eos # (Auto) (0.0-0.4) X10*3/uL Baso # (Auto) (0.0-0.2) X10*3/uL Abs Immat Gran (auto) (0.00-0.03) X10*3/uL Absolute Neuts (auto) (2.0-8.3) x10*3/uL Absolute Nucleated RBC (0.0-0.012) X10*3/uL Nucleated RBC % (auto) (0.0-0.2) /100WBC VBG pH (7.32-7.43) VBG pCO2 mmHg VBG pO2 mmHg VBG HCO3 (22-26) mmol/L VBG O2 Saturation % VBG Base Excess mmol/L Sodium (135-145) mmol/L Potassium (3.3-5.1) mmol/L Chloride (96-108) mmol/L Carbon Dioxide (22-29) mmol/L Anion Gap (12-20) BUN (9-16) mg/dL Creatinine (0.5-1.4) mg/dL Estim Creat Clear Calc Estimated GFR POC Glucose 176 H (60-115) mg/dL Random Glucose (60-115) mg/dL Lactic Acid (0.5-2.0) mmol/L Calcium (8.4-10.2) mg/dL Magnesium (1.6-2.6) mg/dL Total Bilirubin (0.0-1.0) mg/dL Direct Bilirubin (0.0-0.5) mg/dL AST (5-37) U/L ALT (0-40) U/L Alkaline Phosphatase (39-117) U/L Ammonia (13-55) umol/L Troponin I High Sens (<3.5-35.0) ng/L B-Natriuretic Peptide (<100) pg/mL Total Protein (6.5-8.0) g/dL Albumin (3.5-5.0) g/dL Lipase (8-78) U/L Beta-Hydroxybutyrate (0.02-0.27) mmol/L Ethyl Alcohol mg/dL Influenza Type A (PCR) (Negative) Influenza Type B (PCR) (Negative) RSV RNA Qual (PCR) (Negative) SARS-CoV-2 RNA (RT-PCR) (Negative) Independent Interpretation I performed an independent interpretation of an: EKG Interpretation: EKG normal sinus rhythm at a ventricular rate of 99 beats per minute, AK interval 150, QT QTC 352/451, no STEMI Radiology Impression Discussion of test interpretation with radiology: I have reviewed the radiologist's reading. Radiologist Impression: Findings: The lungs are clear. Heart size is normal. No acute fracture. IMPRESSION: 1. No acute findings. This document has been electronically signed by: Amada Dewitt MD on 02/25/2025 12:28:37 Dictated By: Amada Dewitt MD Chronic Conditions Patient?s care impacted by: Diabetes Critical Care Time Critical Care Time Critical Care Time: Yes Total Critical Care Time: 31 Attestation: I have personally provided critical care time exclusive of time spent on separately billable procedures. Time includes review of lab data, radiology results, discussion with consultants, and monitoring for potential decompensation. Intervention performed as documented. Discharge Plan Discharge Clinical Impression: Hypoglycemia associated with diabetes Patient Disposition: Home, Self-Care Instructions: Hypoglycemia in a Person with Diabetes (ED), How to Check your Blood Sugar (ED) Additional Instructions: You were seen in the emergency department today. You were found to be very hypoglycemic, glucose was 49 on your arrival. We had given you IV glucose and your blood glucose level has maintained a normal range. You need to follow-up with your primary care physician, call tomorrow. Please closely monitor your blood sugar. Your blood work today was overall reassuring. Your chest x-ray was negative for pneumonia. You refused providing a urine sample. You are aware that your urine could be infected which could be causing you to have this hypoglycemic episode. If you develop any new or worsening symptoms including but not limited to severe chest pain, shortness for breath, urinary symptoms, or difficulties with managing your blood glucose level, please seek emergent care. Prescriptions: No Action Novolin N NPH U-100 Insulin 100 unit/mL suspension 60 unit subcut DAILY lisinopril 20 mg Tablet 20 mg PO DAILY doxazosin 2 mg tablet 2 mg PO BEDTIME ibuprofen 800 mg tablet 800 mg PO Q8H PRN (Reason: pain) Qty: 30 0RF insulin glargine [Basaglar KwikPen U-100 Insulin] 100 unit/mL (3 mL) insulin pen 60 unit subcut DAILY Print Language: Uzbek
--- NOTE | 2025-02-25 10:14 | ECG_ITS ---
Test Reason : AMS Blood Pressure : */* mmHG Vent. Rate : 99 BPM Atrial Rate : 99 BPM P-R Int : 150 ms QRS Dur : 92 ms QT Int : 352 ms P-R-T Axes : 50 -18 34 degrees QTcB Int : 451 ms Normal sinus rhythm Normal ECG No previous ECGs available Referred By: Amrita Rios Electronically Signed By: Tavon Lawton
[2025-02-25 10:23] LABS: Glucose, Whole Blood 49 mg/dL (60-115)
[2025-02-25 10:28] VITALS: BP 153/80; PULSE 99; O2SAT 96
[2025-02-25 10:29] VITALS: BP 179/81; PULSE 101; RESP 20; TEMP 36.8; O2SAT 96; BMI 36.0
[2025-02-25] MEDS: Dextrose 50 % 25 GM/50 ML SYRINGE IVPUSH (10:36)
[2025-02-25 10:59] LABS: MANUAL DIFF FLAG NO
[2025-02-25 11:00] LABS: Basophils Percent Auto 0.3 % (0-2); Eosinophils Percent Auto 0.3 % (0-4); Hematocrit 43.1 % (42.0-52.0); Hemoglobin 15.4 g/dl (14.0-18.0); Imm Gran Abs Auto 0.02 X10*3/uL (0.00-0.03); Imm Gran Pct Auto 0.3 % (0.0-0.4); Lymphocytes Absolute Auto 0.9 X10*3/uL (1.2-4.9); Lymphocytes Percent Auto 13.4 % (20-40); Mean Corpuscular HGB Conc 35.7 g/dl (31.0-36.0); Mean Corpuscular Hemoglobin 28.9 pg (27.0-33.0); Mean Platelet Volume 8.7 fL (9.4-12.4); Monocytes Absolute Auto 0.4 X10*3/uL (0.1-1.2); Monocytes Percent Auto 5.6 % (2-11); Neutrophils Absolute Auto 5.1 x10*3/uL (2.0-8.3); Neutrophils Percent Auto 80.1 % (45-73); Platelet Count 222 X10*3/uL (160-400); Red Blood Count 5.32 X10*6/uL (4.60-5.80); Red Cell Distribution Width 12.6 % (11.0-16.0); White Blood Count 6.4 X10*3/uL (4.8-10.8)
[2025-02-25 11:02] LABS: Venous Blood Gas Refer to POC result
[2025-02-25 11:03] LABS: VBG Base Excess 1.2 mmol/L; VBG HCO3 25 mmol/L (22-26); VBG pCO2 39 mmHg; VBG pH 7.42 (7.32-7.43); VBG pO2 60 mmHg
[2025-02-25 11:12] LABS: Ammonia 39 umol/L (13-55)
[2025-02-25 11:14] LABS: Beta-Hydroxybutyrate 0.32 mmol/L (0.02-0.27)
[2025-02-25 11:15] LABS: Lactic Acid 1.1 mmol/L (0.5-2.0)
[2025-02-25 11:16] LABS: Ethanol < 10 mg/dL
[2025-02-25 11:19] LABS: Alanine Aminotransferase 21 U/L (0-40); Albumin Level 4.2 g/dL (3.5-5.0); Alkaline Phosphatase 75 U/L (39-117); Anion Gap 15 (12-20); Aspartate Amino Transferase 33 U/L (5-37); Bilirubin Direct 0.2 mg/dL (0.0-0.5); Bilirubin Total 0.7 mg/dL (0.0-1.0); Blood Urea Nitrogen 11 mg/dL (9-16); Calcium 9.3 mg/dL (8.4-10.2); Carbon Dioxide 22 mmol/L (22-29); Chloride 106 mmol/L (96-108); Creatinine Clr Calc Pharmacy 116.1; Estimated Glomerular Filt Rate > 60; Glucose Random 190 mg/dL (60-115); Lipase 6 U/L (8-78); Magnesium 2.1 mg/dL (1.6-2.6); Potassium 3.9 mmol/L (3.3-5.1); Sodium 139 mmol/L (135-145); Total Protein 7.4 g/dL (6.5-8.0)
[2025-02-25 11:22] LABS: B Type Natriuretic Peptide < 10 pg/mL (<100)
[2025-02-25 11:33] LABS: Troponin-I High Sensitivity < 2.7 ng/L (<3.5-35.0)
[2025-02-25 11:50] LABS: Influenza A PCR NEGATIVE (Negative); Influenza B PCR NEGATIVE (Negative); Resp Syncy Virus RNA Qual PCR NEGATIVE (Negative); SARS COV2 PCR INHOUSE NEGATIVE (Negative)
[2025-02-25 12:00] VITALS: BP 156/77; PULSE 91; RESP 18; O2SAT 95
[2025-02-25 12:02] LABS: Glucose, Whole Blood 176 mg/dL (60-115)
--- NOTE | 2025-02-25 12:51 | PC.NURSE ---
Pitcher of water and sandwich given to pt. Informed pt. he must provide a ua sample prior to dc and per provider.
[2025-02-25 13:05] LABS: Glucose, Whole Blood 171 mg/dL (60-115)
[2025-02-25 13:14] VITALS: BP 145/80; PULSE 95; RESP 18; TEMP 36.7; O2SAT 95
--- NOTE | 2025-02-25 13:14 | PC.NURSE ---
Per provider, pt. is going to be dc without ua.
== END 2025-02-25 13:15 | disposition home or self-care (01) ==
PROVIDERS: Physician Assistant Medical; Emergency Provider Emergency Medicine; PCP Internal Medicine
DX: E11.649 Type 2 diabetes mellitus with hypoglycemia without coma (principal); R45.1 Restlessness and agitation; Z03.818 Encounter for observation for suspected exposure to other biological agents ruled out; Z79.4 Long term (current) use of insulin; Z79.899 Other long term (current) drug therapy
CPT/HCPCS: 0241U; 36415; 71045; 80048; 80076; 80307; 82010; 82140; 82803; 82947; 83605; 83690; 83735; 83880; 84484; 85025; 87040; 93005; 96374; 99285

== ENCOUNTER → 2025-02-25 10:14 | Outpatient (BNV) | payer MEDICARE, MEDICAID, SELFPAY | PROVIDERS: Emergency Provider Emergency Medicine; PCP Internal Medicine; Visit Provider Internal Medicine Cardiovascular Disease | DX: R41.82 Altered mental status, unspecified (principal) | CPT/HCPCS: 93010 ==

== ENCOUNTER 2025-03-02 15:14 | Outpatient (AMB) | payer MEDICARE, MEDICAID, SELFPAY ==
--- NOTE | 2025-03-02 15:21 | MHC.PC.OV ---
Vital Signs 03/02/25 15:23 Height 5 ft 11 in Weight 248 lb BMI 34.6 BP 140/70 H Blood Pressure Location Rt brachial Position Sitting Pulse 117 H Pulse Source Pulse Oximeter Temp 98.4 F Temp Source Axillary Pulse Oximetry (%) 97 Oxygen Delivery Method Room Air Intake Visit Reasons: ED F/U - see comments Accompanied by: Spouse Allergies cephalexin Allergy (Verified 03/02/25 15:25) Unknown Penicillins Allergy (Verified 03/02/25 15:25) Anaphylaxis Tobacco use date assessed: 03/02/25 Dental Screening Dental Screen Date: 03/02/25 Did you have a dental visit in the last 12 months?: Yes Did you have a dental problem in the last 6 months where you did not have access to dental care?: No HPI HPI Comments History of Present Illness Details The patient is a insulin dependent diabetic, htn, venous insufficiency, atrial fibrillation, COPD, GERD, hernia presenting for follow up Diabetes, type 1. Recently treated in the ER for hypoglycemia. On basaglar taking 54, aspart ss starting at 6units. Last A1C 02/2024 6.4%-very overdue. Will adjust meds today and repeat A1C prior to next visit. Supposed to be on lisinpril for HTN, renal protection, has not had script. to be restarted today Podiatry Dr Hernandes Sees [place] [facility] ROS CONSTITUTIONAL: Denies weight loss, fever and chills. HEENT: Denies changes in vision and hearing. RESPIRATORY: Denies SOB and cough. CV: Denies palpitations and CP GI: Denies abdominal pain, nausea, vomiting and diarrhea. : Denies dysuria and urinary frequency. MSK: Denies new myalgia and joint pain. SKIN: Denies rash and pruritus. NEUROLOGICAL: Denies headache PSYCHIATRIC: Denies recent changes in mood. PHYSICAL EXAM: GENERAL: Alert and oriented x 3. NAD EYES: EOMI. Anicteric. HENT: Moist mucous membranes. No scleral icterus. No cervical lymphadenopathy. LUNGS: Clear to auscultation bilaterally. CARDIOVASCULAR: Regular rate and rhythm. No murmur. No JVD. ABDOMEN: Soft, non-tender +bs EXTREMITIES: No edema. Non-tender. SKIN: No rashes or lesions. Warm. NEUROLOGIC: No focal neurological deficits. CN II-XII grossly intact PSYCHIATRIC: Cooperative. Appropriate mood and affect [facility] Medical History Anxiety Obesity Overweight Hallux valgus (acquired), right foot Hallux valgus (acquired), left foot Localized edema Legally blind Diabetes Surgical History Umbilical hernia (11/03/24) History of eye surgery Status post surgical removal of nail matrix of toe of right foot Family History Mother No problems noted. Father No problems noted. Social History Housing: Apartment Patient Tobacco Use Status: Never used Tobacco e-Cigarette/Vaping Use: Never Used service: No Current occupational status: retired Cognitive needs: No Hearing needs: No Vision needs: No Questionnaire PHQ-9 Over the last 2 weeks, how often have you been bothered by any of the following problems? 1. Little interest or pleasure in doing things: not at all 2. Feeling down, depressed, or hopeless: not at all 3. Trouble falling or staying asleep, or sleeping too much: not at all 4. Feeling tired or having little energy: not at all 5. Poor appetite or overeating: not at all 6. Feeling bad about yourself - or that you are a failure or have let yourself or your family down: not at all 7. Trouble concentrating on things, such as reading the newspaper or watching television: not at all 8. Moving or speaking so slowly that other people could have noticed. Or the opposite - being so fidgety or restless that you have been moving around a lot more than usual: not at all 9. Thoughts that you would be better off or of hurting yourself in some way: not at all Total score: 0 Depression Screening Interpretation: Negative Depression Screening Done: Yes 21210 - PHQ-9 Billing: Yes Source: Developed by Drs. Jorje Ugarte, Vania Augustin, Drake Henry and colleagues, with an educational deisi from [email or web address]. Thrive Questionnaire Date Thrive assessed: 06/20/25 I am a: Patient Within the past 12 months, did the food you bought not last and you didn't have the money to get more?: Never true Within the past 12 months, did you worry whether your food would run out before you got money to buy more?: Never true Do you have trouble paying for medicines?: No Do you have trouble getting transportation to medical appointments?: No Do you have trouble paying your heating and electricity bill?: No Do you have trouble taking care of your child, family member or friend?: No Do you have trouble with day-to-day activities such as bathing, preparing meals, shopping, managing finances, etc.?: No Are you currently unemployed and looking for a job?: No Are you interested in more education?: No THRIVE Score: 0 AUDIT C Alcohol Use Questionnaire (AUDIT-C) 1. How often do you have a drink containing alcohol?: Monthly or less 2. How many drinks containing alcohol do you have on a typical day when you are drinking?: 1 or 2 3. How often do you have six or more drinks on one occasion?: Less than monthly Total Score: 2 BARBARA-7 AMB Questionnaire BARBARA-7 Date BARBARA - 7 assessed: 03/02/25 Feeling nervous, anxious, or on edge: 0 = Not at all Not being able to stop or control worryin = Not at all Worrying too much about different things: 0 = Not at all Trouble relaxin = Not at all Being so restless that it is hard to sit still: 0 = Not at all Becoming easily annoyed or irritable: 0 = Not at all Feeling afraid as if something awful might happen: 0 = Not at all Total BARBARA-7 score (0-4 normal; 5-9 mild; 10-14 moderate; 15-21 severe): 0 Source: Developed by Drs. Jorje Ugarte, Vania Augustin, Drake Henry and colleagues, with an educational deisi from [email or web address]. Physical exam (Primary Care) Vital Signs: Last Vital Signs Temp 98.4 F 03/02/25 15:23 Pulse 117 H 03/02/25 15:23 BP 140/70 H 03/02/25 15:23 Pulse Ox 97 03/02/25 15:23 Oxygen Delivery Method Room Air 03/02/25 15:23 BMI result Body Mass Index 34.6 Tobacco/Smoking Status: Tobacco use Status Tobacco use date assessed 03/02/25 03/02/25 15:28 Patient Tobacco Use Status Never used Tobacco 03/02/25 15:28 e-Cigarette/Vaping Use Never Used 03/02/25 15:28 PHQ-9: PHQ-9 Score PHQ-9: Total score 0 03/03/25 16:18 Depression Screening Interpretation: Negative Thrive Assessment: Date of Thrive Assessment Date Thrive assessed 03/02/25 03/02/25 15:28 Coding Level of Care Code New Pt Level 4 (42431) Complex EM visit Add On G2211 Diagnoses Type 1 diabetes mellitus with retinopathy, macular edema presence unspecified, unspecified laterality, unspecified retinopathy severity E10.319 Diabetes mellitus complication detail: with diabetic retinopathy Diabetes mellitus complication status: with ophthalmic complications Diabetes mellitus macular edema: macular edema presence unspecified Diabetes mellitus type: type 1 Diabetic retinopathy severity: with unspecified retinopathy severity Laterality: unspecified laterality Additional Codes PHQ-9 - 07879 - PHQ-9 Billing: Yes ([id number]) Assessment & Plan Assessment & Plan (1) Diabetes: Code(s): E11.9 - Type 2 diabetes mellitus without complications Category: Medical Qualifiers: Diabetes mellitus complication detail: with diabetic retinopathy Diabetes mellitus complication status: with ophthalmic complications Diabetes mellitus macular edema: macular edema presence unspecified Diabetes mellitus type: type 1 Diabetic retinopathy severity: with unspecified retinopathy severity Laterality: unspecified laterality Qualified Code(s): E10.319 - Type 1 diabetes mellitus with unspecified diabetic retinopathy without macular edema Plan 49 y/o to establish care past medical, surgical, social reviewed ER visit reviewed DM-controlled per last A1C with recent ER visit for hypoglycemia. Orders: Orders Glutamic acid decarboxylase Ab 03/02/25 E11.9 - Type 2 diabetes mellitus without complications Comprehensive Met. Panel 03/02/25 E11.9 - Type 2 diabetes mellitus without complications Lipid Panel 03/02/25 E11.9 - Type 2 diabetes mellitus without complications Hemoglobin A1c 03/02/25 E11.9 - Type 2 diabetes mellitus without complications Medications: New blood-glucose meter ([employer] Glucose Meter kit) As directed 1 ea 0RF insulin aspart U-100 Take subcutaneous 3 times daily 15 minutes before meals For BG <150-0 units 150-199-2 units 200-249-4 units 250-299-6 units 300-349-8 units >/=350 10 units 1 sliding scale dose subcut USEASDIRECTD 15 mL 3RF lisinopril 10 mg PO DAILY 90 tabs 3RF Changed From insulin glargine (Basaglar KwikPen U-100 Insulin) 60 units subcut DAILY To insulin glargine (Basaglar KwikPen U-100 Insulin) 46 units (0.46 mL) subcut DAILY 30 mL 3RF Refilled insulin glargine (Basaglar KwikPen U-100 Insulin) 46 units (0.46 mL) subcut DAILY 30 mL 3RF
[2025-03-02 15:23] VITALS: BP 140/70; PULSE 117; TEMP 36.9; O2SAT 97; BMI 34.6
== END 2025-03-02 15:51 | disposition home or self-care (01) ==
LOC: HO.HMCHD 15:15
PROVIDERS: PCP Internal Medicine; Visit Provider Internal Medicine
DX: E10.319 Type 1 diabetes mellitus with unspecified diabetic retinopathy without macular edema (principal)

== ENCOUNTER → 2025-03-02 15:14 | Outpatient (BNVA) | payer MEDICARE, MEDICAID, SELFPAY | PROVIDERS: PCP Internal Medicine; Visit Provider Internal Medicine | DX: Z76.89 Persons encountering health services in other specified circumstances (principal); E10.319 Type 1 diabetes mellitus with unspecified diabetic retinopathy without macular edema; I10 Essential (primary) hypertension; J44.9 Chronic obstructive pulmonary disease, unspecified; I48.91 Unspecified atrial fibrillation; K21.9 Gastro-esophageal reflux disease without esophagitis; I87.2 Venous insufficiency (chronic) (peripheral); Z79.4 Long term (current) use of insulin; Z13.31 Encounter for screening for depression; Z13.30 Encounter for screening examination for mental health and behavioral disorders, unspecified | CPT/HCPCS: 96127; 99202 ==